=== PATIENT | male | born 1975 | race African-American/Black ===

== ENCOUNTER 2021-10-02 10:57 | Emergency (ER) | payer OTHER ==
[~2021-10-02] VITALS: Ht 185.4 cm; Wt 104.3 kg
[2021-10-02] MEDS ORDERED: MOTRIN IB200 M1 (12:12)
[2021-10-02] MEDS ORDERED: CILOXAN5 ML (12:12)
== END 2021-10-02 16:56 | disposition home or self-care (01) ==
LOC: ER 10:57
DX: J02.0 Streptococcal pharyngitis (principal)